=== PATIENT | female | born 1970 | race African-American/Black ===

== ENCOUNTER 2016-08-23 02:18 | Emergency (ER) | payer MEDICAID ==
[~2016-08-23] VITALS: Ht 177.8 cm; Wt 70.0 kg
[~2016-08-23 02:18] MED LIST: ADVAI100I PO; ALBU1AER INH
[2016-08-23 02:21] VITALS: BP 123/81; PULSE 94; RESP 16; TEMP 98; O2SAT 99
[2016-08-23] MEDS ORDERED: ALBUAER3 INH (02:39)
[2016-08-23] MEDS ORDERED: ADVA100A INH (02:39)
== END 2016-08-23 03:15 | disposition left against medical advice (07) ==
LOC: NED 02:18
DX: R07.9 Chest pain, unspecified (principal)
CPT/HCPCS: 99281

== ENCOUNTER 2016-10-08 00:35 | Emergency (ER) | payer MEDICAID ==
[~2016-10-08] VITALS: Ht 177.8 cm; Wt 73.0 kg
[~2016-10-08 00:35] MED LIST changes: +ADVA100A INH; -ADVAI100I PO; -ALBU1AER INH; +ALBUAER3 INH
[2016-10-08 00:37] VITALS: BP 133/93; PULSE 91; RESP 15; TEMP 98.3; O2SAT 100
[2016-10-08] MEDS ORDERED: NEUR300C PO (01:05)
--- NOTE | 2016-10-08 01:05 | PD ---
HPI Chief Complaint: Pain: Acute or Chronic Time Seen by Provider: 00:55 Travel History International Travel<30 days: No Contact w/Intl Traveler<30days: No Traveled to known affect area: No History of Present Illness HPI 46 old black female presents to emergency para complains of bilateral leg pain. The pain is been present now for 2 years or more. This is a patient who I'm seeing for the same problem back in December. She had basic labs including sedimentation rate and CK. She was given prescription prednisone and was advised to follow-up with her doctor. She's been through physical therapy. She states the pains have been constant but have been progressively getting worse. She takes Lortab for pain. She states that her doctor has not determine the etiology of her pain. Patient denies any trauma. She states the pain is diffuse in her legs. There is no focal localization. Pain is exacerbated by walking. She denies any numbness or tingling. She denies back pain. PFSH Past Medical History Hx Anticoagulant Therapy: No Heart Rhythm Problems: No Cancer: No Cardiac Catheterization: No Cardiovascular Problems: Yes (CHEST PAIN) High Cholesterol: Yes Chemotherapy: No Chest Pain: Yes (MAYBE HAD A MILD [place]?/ PT DENIES) COPD: Yes Cerebrovascular Accident: Yes (CVA 2013) Diabetes: No Diminished Hearing: No Endocrine: No Genitourinary: No Immune Disorder: No Musculoskeletal: Yes (hx dislocated left knee ) Neurologic: No Reproductive: No Respiratory: Yes (COPD) Menopausal: No : 3 Para: 3 Miscarriage: 0 : 0 Ovarian Cysts: Yes Tubal Ligation: Yes Past Surgical History Coronary Artery Bypass Graft: No Gynecologic Surgery: Yes (TUBAL LIGATION) Hysterectomy: No Social History Alcohol Use: Yes ( OCCASIONAL) Tobacco Use: Yes (1/2 PPD) Substance Use: No (DENIES) Allergies-Medications (Allergen,Severity, Reaction): Coded Allergies: Morphine (Verified Allergy, Severe, ITCH, 10/08/16) Tylenol #3 (Verified Allergy, Severe, ITCH, 10/08/16) Codeine (Verified Allergy, Intermediate, Rash, 10/08/16) Reported Meds & Prescriptions Reported Meds & Active Scripts Active Reported Proair Hfa 8.5 GM Inh (Albuterol Sulfate) 90 Mcg/Act Aer 1 Puff INH Q4H PRN 108 mcg/actuation Advair Diskus Inh (Fluticasone-Salmeterol Inh) 100-50 Mcg/Blist Aer 1 Puff INH BID Rinse mouth after use. Review of Systems Except as stated in HPI: all other systems reviewed are Neg Physical Exam Narrative GENERAL: This is a well-nourished, well-developed patient, in no apparent distress. SKIN: No rashes, ecchymoses or lesions. Warm and dry. HEAD: Atraumatic. Normocephalic. EYES: PERRL, EOMI, no discharge or injection. No scleral icterus. EARS: Clear NOSE: Nasal turbinates appear normal. THROAT: Mucosa pink and moist. Airway patent. NECK: Trachea midline. supple, moves head freely. LUNGS: Clear to auscultation. CV: Regular in rhythm. ABDOMEN: Soft nontender. EXT: No clubbing cyanosis or edema. Patient has intact gross sensation. She has good dorsalis pedis pulses. She has full range of motion without instability. There is no erythema, warmth or edema. I'm able to flex and extend her legs freely without any pain. I palpated her thighs, calves and there is no discernible pain, swelling or erythema. There is no warmth. No Homans sign. Patient is ambulatory with antalgic gait. There is no reproducible back pain. She sits up in bed past 90. No saddle anesthesia. Data Data Last Documented VS Vital Signs Date Time Temp Pulse Resp B/P Pulse Ox O2 Delivery O2 Flow Rate FiO2 10/08/16 00:37 98.3 91 15 133/93 100 Room Air MDM Medical Decision Making Medical Screen Exam Complete: Yes Emergency Medical Condition: Yes Medical Record Reviewed: Yes Differential Diagnosis Differential diagnosis: Lumbar radiculopathy, myositis, autoimmune, PVD, neuropathy, malingering Narrative Course Patient will be given a prescription for Neurontin. This is chronic bilateral leg pain Diagnosis Primary Impression: Chronic pain of lower extremity, bilateral Patient Instructions: General Instructions Additional Instructions: Rest. Neurontin. Follow-up with your on Monday. Med/Other Pt SpecificInfo: Prescription(s) given Disposition: DISCHARGE HOME Condition: Stable Dariusz Ayoub Oct 08, 2016 01:04
[2016-10-08] MEDS ORDERED: GABAPENTIN 300 MG CAP PO ONE (01:15)
== END 2016-10-08 01:31 | disposition home or self-care (01) ==
LOC: NETRI 00:35
DX: M79.604 Pain in right leg (principal); M79.605 Pain in left leg; J44.9 Chronic obstructive pulmonary disease, unspecified; E78.00 Pure hypercholesterolemia, unspecified; Z86.73 Personal history of transient ischemic attack (TIA), and cerebral infarction without residual deficits; F17.210 Nicotine dependence, cigarettes, uncomplicated
CPT/HCPCS: 99283

== ENCOUNTER 2017-03-07 11:19 | Emergency (ER) | payer SELFPAY ==
[~2017-03-07] VITALS: Ht 177.8 cm; Wt 73.0 kg
[~2017-03-07 11:19] MED LIST changes: +NEUR300C PO
[2017-03-07 11:20] VITALS: BP 124/78; PULSE 82; RESP 16; TEMP 98.4; O2SAT 100
--- NOTE | 2017-03-07 11:28 | PD ---
Physical Exam Time Seen by Provider: 11:26 Narrative 46yo F c/o SOB x a few days. Deneis chest pain. +left upper back pain. + cough. Patient seen in triage. VS reviewed. Patient awaiting bed placement. Data Data Last Documented VS Vital Signs Date Time Temp Pulse Resp B/P (MAP) Pulse Ox O2 Delivery O2 Flow Rate FiO2 03/07/17 11:20 98.4 82 16 124/78 (93) 100 MDM Supervised Visit with STEPHANIE: Hemalatha Camarillo Mar 07, 2017 11:28
--- NOTE | 2017-03-07 11:52 | PD ---
HPI . shortness or breath and bad lung for over 1 year Chief Complaint: Respiratory Symptoms Time Seen by Provider: 11:50 Travel History International Travel<30 days: No Contact w/Intl Traveler<30days: No Traveled to known affect area: No History of Present Illness HPI 46 yr old female here with c/o of lung problems that she has had for over 1 year. She tells me she has gone to her PCP and a consumer insights specialist and they have told her that her lungs are going bad, likely related to her smoking. She admits to pain. Denies any fever, chills, etc. PFSH Past Medical History Hx Anticoagulant Therapy: No Heart Rhythm Problems: No Cancer: No Cardiac Catheterization: No Cardiovascular Problems: Yes (CHEST PAIN) High Cholesterol: Yes Chemotherapy: No Chest Pain: Yes (MAYBE HAD A MILD [place]?/ PT DENIES) COPD: Yes Cerebrovascular Accident: Yes (2011) Diabetes: No Diminished Hearing: No Endocrine: No Genitourinary: No Immune Disorder: No Musculoskeletal: Yes (hx dislocated left knee ) Neurologic: No Reproductive: No Respiratory: Yes (COPD) Menopausal: No : 3 Para: 3 Miscarriage: 0 : 0 Ovarian Cysts: Yes Tubal Ligation: Yes Past Surgical History Coronary Artery Bypass Graft: No Gynecologic Surgery: Yes (TUBAL LIGATION) Hysterectomy: No Social History Alcohol Use: Yes ( OCCASIONAL) Tobacco Use: Yes (1/2 PPD) Substance Use: No (DENIES) Allergies-Medications (Allergen,Severity, Reaction): Coded Allergies: acetaminophen (Unverified Allergy, Severe, ITCH, 02/21/17) codeine (Unverified Allergy, Severe, ITCH, 02/21/17) morphine (Unverified Allergy, Severe, ITCH, 02/21/17) Reported Meds & Prescriptions Reported Meds & Active Scripts Active Neurontin (Gabapentin) 300 Mg Cap 300 Mg PO TID Reported Proair Hfa 8.5 GM Inh (Albuterol Sulfate) 90 Mcg/Act Aer 1 Puff INH Q4H PRN 108 mcg/actuation Advair Diskus Inh (Fluticasone-Salmeterol Inh) 100-50 Mcg/Blist Aer 1 Puff INH BID Rinse mouth after use. Review of Systems General / Constitutional: No: Fever Eyes: No: Visual changes HENT: No: Headaches Cardiovascular: No: Chest Pain or Discomfort Respiratory: No: Cough, Shortness of Breath, Wheezing, Sneezing, Orthopnea, Hemoptysis, Night Sweats, Pleuritic Pain Gastrointestinal: No: Abdominal Pain Genitourinary: No: Dysuria Musculoskeletal: No: Pain Skin: No Rash Neurologic: No: Weakness Psychiatric: No: Depression Endocrine: No: Polydipsia Hematologic/Lymphatic: No: Easy Bruising Physical Exam Narrative GENERAL: AAO x 3, no acute distress, Well-nourished, well-developed patient. SKIN: Warm and dry. No visible rashes or bruising. HEAD: Normocephalic and atraumatic. EYES: No scleral icterus. No injection or drainage. ENT: No nasal drainage noted. Mucous membranes pink. Airway patent. NECK: Supple, trachea midline. No JVD. CARDIOVASCULAR: Regular rate and rhythm without murmurs, gallops, or rubs. RESPIRATORY: Breath sounds equal bilaterally. No accessory muscle use. No rhonchi or rales. No wheezing GASTROINTESTINAL: Visual inspection normal EXTREMITIES: No cyanosis or edema. BACK: Nontender without obvious deformity. No CVA tenderness. NEURO: CN II-12 intact PSYCH: AAO x 3, normal affect. Data Data Last Documented VS Vital Signs Date Time Temp Pulse Resp B/P (MAP) Pulse Ox O2 Delivery O2 Flow Rate FiO2 03/07/17 11:20 98.4 82 16 124/78 (93) 100 Orders Orders Chest, Pa & Lat (03/07/17 11:30) [facility] Medical Decision Making Medical Screen Exam Complete: Yes Emergency Medical Condition: No Medical Record Reviewed: Yes Differential Diagnosis COPD, less likely pulmonary emboli, less likely pneumonia Narrative Course A medical screening exam was performed: At the time of evaluation the presenting medical condition was determined not to be of an emergent nature. The patient was given the option of receiving additional care, but declined. Patient was given options for additional community resources from which to obtain care. The Patient Has Been advised to seek medical attention for their presenting complaint. The patient has been advised to return to the ER at any time if an emergent condition develops. Per Well's Criteria low likelihood of PE. Exam unremarkable. Xray ordered in triage. We briefly discussed possibilities and she tells me that the doctors all say that those things are not wrong with her. She got up and walked out of the exam room stating, "You're not a doctor and won 't be able to do anything anyway." Diagnosis Primary Impression: Encounter for medical screening examination Condition: Stable Olga Naik Mar 07, 2017 11:52
--- NOTE | 2017-03-07 12:43 | RADRPT ---
EXAM DATE/TIME: 03/07/2017 11:49 [facility] COMPARISON: CHEST SINGLE AP, January 17, 2016, 0:42. INDICATIONS : Short of breath and left side chest for a year. MEDICAL HISTORY : Chronic obstructive pulmonary disease. SURGICAL HISTORY : None. ENCOUNTER: Initial ACUITY: >1 year PAIN SCORE: 3/10 LOCATION: Bilateral chest FINDINGS: PA and lateral views of the chest demonstrate the lungs to be symmetrically aerated without evidence of mass, infiltrate or effusion. The cardiomediastinal contours are unremarkable. Osseous structure s are intact. Stable symmetrical minimal bilateral apical pleural-parenchymal scarring CONCLUSION: No acute disease. No significant change has occurred. Josh Bingham MD on March 07, 2017 at 12:41 Board Certified Radiologist. This report was verified electronically.
== END 2017-03-07 12:07 | disposition left against medical advice (07) ==
LOC: NEPK 11:19
DX: R06.02 Shortness of breath (principal); M54.9 Dorsalgia, unspecified; R05 Cough; J44.9 Chronic obstructive pulmonary disease, unspecified; Z86.73 Personal history of transient ischemic attack (TIA), and cerebral infarction without residual deficits; F17.200 Nicotine dependence, unspecified, uncomplicated; Z79.52 Long term (current) use of systemic steroids; Z79.899 Other long term (current) drug therapy; Z88.5 Allergy status to narcotic agent
CPT/HCPCS: 71020; 99283

== ENCOUNTER 2017-03-17 23:37 | Emergency (ER) | payer SELFPAY ==
[~2017-03-17] VITALS: Ht 177.8 cm; Wt 70.0 kg
[2017-03-17 23:39] VITALS: BP 149/92; PULSE 97; RESP 15; TEMP 98; O2SAT 100
[2017-03-18] MEDS ORDERED: DEXAMETHASONE SOD PHOS 20 MG/5 ML VIAL IM ONE
--- NOTE | 2017-03-18 | PD ---
HPI Chief Complaint: Pain: Acute or Chronic Time Seen by Provider: 23:50 Travel History International Travel<30 days: No Contact w/Intl Traveler<30days: No Traveled to known affect area: No History of Present Illness HPI 46-year-old female with history of chronic leg pain, presents to emergency department for evaluation of exacerbation of this pain. Pain has existed for at least the last 2 years. She's been seen in emergency department multiple times in the past for this. She states that she has seen her primary care provider and got pain management but nobody knows why it happens. She states that she wants answers. She recalls an injury. No recent illness, fever, or chills. She does not want any pain medicine. She stopped taking her Neurontin because it wasn't working. Pain is a constant, burning, aching pain. She has no other symptoms to report. PFSH Past Medical History Hx Anticoagulant Therapy: No Heart Rhythm Problems: No Cancer: No Cardiac Catheterization: No Cardiovascular Problems: Yes (CHEST PAIN) High Cholesterol: Yes Chemotherapy: No Chest Pain: Yes (MAYBE HAD A MILD [place]?/ PT DENIES) COPD: Yes Cerebrovascular Accident: Yes (2011) Diabetes: No Diminished Hearing: No Endocrine: No Genitourinary: No Immune Disorder: No Musculoskeletal: Yes (hx dislocated left knee ) Neurologic: No Reproductive: No Respiratory: Yes (COPD) ?: Not Menopausal: No : 3 Para: 3 Miscarriage: 0 : 0 Ovarian Cysts: Yes Tubal Ligation: Yes Past Surgical History Coronary Artery Bypass Graft: No Gynecologic Surgery: Yes (TUBAL LIGATION) Hysterectomy: No Social History Alcohol Use: Yes ( OCCASIONAL) Tobacco Use: Yes (1 PPD) Substance Use: No (DENIES) Allergies-Medications (Allergen,Severity, Reaction): Coded Allergies: acetaminophen (Unverified Allergy, Severe, ITCH, 03/17/17) codeine (Unverified Allergy, Severe, ITCH, 03/17/17) morphine (Unverified Allergy, Severe, ITCH, 03/17/17) Reported Meds & Prescriptions Reported Meds & Active Scripts Active Reported Proair Hfa 8.5 GM Inh (Albuterol Sulfate) 90 Mcg/Act Aer 1 Puff INH Q4H PRN 108 mcg/actuation Advair Diskus Inh (Fluticasone-Salmeterol Inh) 100-50 Mcg/Blist Aer 1 Puff INH BID Rinse mouth after use. Review of Systems Except as stated in HPI: all other systems reviewed are Neg Physical Exam Narrative GENERAL: Well-nourished female patient, in no acute distress SKIN: Focused skin assessment warm/dry. HEAD: Atraumatic. Normocephalic. EYES: Pupils equal and round. No scleral icterus. No injection or drainage. ENT: No nasal bleeding or discharge. Mucous membranes pink and moist. NECK: Trachea midline. No JVD. CARDIOVASCULAR: Regular rate and rhythm. No murmur appreciated. RESPIRATORY: No accessory muscle use. Clear to auscultation. Breath sounds equal bilaterally. GASTROINTESTINAL: Abdomen soft, non-tender, nondistended. Hepatic and splenic margins not palpable. MUSCULOSKELETAL: No obvious deformities. No clubbing. No cyanosis. No edema. Patient has full range of motion the bilateral lower extremity. Sensation intact distal extremities. No edema, no erythema on the bilateral lower extremities. Negative Homans sign. I am able to palpate the entire legs without exacerbation of the patient's pain. NEUROLOGICAL: Awake and alert. No obvious cranial nerve deficits. Motor grossly within normal limits. Normal speech. PSYCHIATRIC: Appropriate mood and affect; insight and judgment normal. Data Data Last Documented VS Vital Signs Date Time Temp Pulse Resp B/P (MAP) Pulse Ox O2 Delivery O2 Flow Rate FiO2 03/18/17 00:18 03/17/17 23:48 16 03/17/17 23:39 98.0 97 100 Room Air Orders Orders Dexamethasone Inj (Decadron Inj) (03/18/17 00:00) [facility] Medical Decision Making Medical Screen Exam Complete: Yes Emergency Medical Condition: Yes Medical Record Reviewed: Yes Differential Diagnosis Neuropathy versus acute on chronic pain versus radiculopathy versus arthritic pain versus vascular etiology Narrative Course 46 year female resents versus permanent for evaluation of bilateral leg pain. Patient has been seen in the emergency department for this in the past. She has had it for over the last 2 years. Patient has known new injury. There are no acute findings on examination. Patient is reluctant for any medication but her is requesting steroid shot. Patient does want to attempt this for any relief. She is given IM Decadron. Patient will be discharged home to follow-up with her primary care provider. Diagnosis Primary Impression: Chronic pain of lower extremity, bilateral Referrals: Primary Care Physician Patient Instructions: General Instructions, Leg Pain (ED) Additional Instructions: Follow-up primary care provider Seek pain management evaluation Outpatient EMG may be warranted for further evaluation of your pain etiology Return immediately to the emergency department with any acute worsening of symptoms Med/Other Pt SpecificInfo: No Change to Meds Disposition: 01 DISCHARGE HOME Condition: Stable [place] Mar 18, 2017 00:00
== END 2017-03-18 00:22 | disposition home or self-care (01) ==
LOC: NEPD 23:37
DX: M79.605 Pain in left leg (principal); M79.604 Pain in right leg; G89.29 Other chronic pain
CPT/HCPCS: 96372; 99284; J1100

== ENCOUNTER 2017-07-18 09:44 | Observation (INO) | payer SELFPAY ==
[~2017-07-18] VITALS: Ht 177.8 cm; Wt 72.0 kg
[2017-07-18] VITALS (7 sets, daily range): BP systolic 103–115; BP diastolic 61–73; PULSE 74–90; RESP 14–18; TEMP 98–98.4; O2SAT 100
[~2017-07-18 09:44] MED LIST changes: -NEUR300C PO
--- NOTE | 2017-07-18 11:20 | RADRPT ---
EXAM DATE/TIME: 07/18/2017 10:52 [facility] COMPARISON: CHEST PA & LAT, March 07, 2017, 11:49. INDICATIONS : Chest pains mid-sternal radiating into left shoulder. MEDICAL HISTORY : None. SURGICAL HISTORY : None. ENCOUNTER: Initial ACUITY: 3 days PAIN SCORE: 7/10 LOCATION: Left chest FINDINGS: PA and lateral views of the chest demonstrate the lungs to be symmetrically aerated without evidence of mass, infiltrate or effusion. The cardiomediastinal contours are unremarkable. Osseous structure s are intact. CONCLUSION: No acute disease. Pal Davis MD on July 18, 2017 at 11:16 Board Certified Radiologist. This report was verified electronically.
[2017-07-18] MEDS ORDERED: SODIUM CHLORIDE 0.9% FLUSH 10 ML FLUSH IVF PRN (12:30)
[2017-07-18] MEDS ORDERED: NITROGLYCERIN 0.4 MG SL 25 TABS/BTL SL ONE (12:30)
[2017-07-18] MEDS ORDERED: ASPIRIN 325 MG TAB PO ONE (12:30)
--- NOTE | 2017-07-18 12:34 | PD ---
HPI Chief Complaint: Chest Pain Time Seen by Provider: 12:19 Travel History International Travel<30 days: No Contact w/Intl Traveler<30days: No Traveled to known affect area: No History of Present Illness HPI 47-year-old female states she's been having left-sided chest pain over the past week. She states it has gotten more constant. She states it feels like a pressure and will make her arm feels funny on the left. She states she also feels hot with it. She states that she has not taken an aspirin yet today. She states she followed with a events intern in [facility] but after insurance changes she is working on setting up a new one. She states her last stress test was last year but she didn't get the results yet. She denies other specific complaints. Quality is pressure. Severity is currently 7 out of 10. She denies specific modifying factors. Her cardiac risk factors are cigarette smoking and family history PFSH Past Medical History Hx Anticoagulant Therapy: No Heart Rhythm Problems: No Cancer: No Cardiac Catheterization: No High Cholesterol: Yes Chemotherapy: No Chest Pain: Yes (MAYBE HAD A MILD [place]?/ PT DENIES) COPD: Yes Cerebrovascular Accident: Yes (2011) Diabetes: No Diminished Hearing: No Endocrine: No Genitourinary: No Immune Disorder: No Musculoskeletal: Yes (hx dislocated left knee ) Neurologic: No Reproductive: No Respiratory: Yes (COPD) ?: Not Menopausal: No : 3 Para: 3 Miscarriage: 0 : 0 Ovarian Cysts: Yes Tubal Ligation: Yes Past Surgical History Coronary Artery Bypass Graft: No Gynecologic Surgery: Yes (TUBAL LIGATION) Hysterectomy: No Family History Family Myocardial Infarction: Yes Social History Alcohol Use: Yes ( OCCASIONAL) Tobacco Use: Yes (1 PPD) Substance Use: No (DENIES) Allergies-Medications (Allergen,Severity, Reaction): Coded Allergies: acetaminophen (Unverified Allergy, Severe, ITCH, 07/18/17) codeine (Unverified Allergy, Severe, ITCH, 07/18/17) morphine (Unverified Allergy, Severe, ITCH, 07/18/17) Reported Meds & Prescriptions Reported Meds & Active Scripts Active Reported Proair Hfa 8.5 GM Inh (Albuterol Sulfate) 90 Mcg/Act Aer 1 Puff INH Q4H PRN 108 mcg/actuation Advair Diskus Inh (Fluticasone-Salmeterol Inh) 100-50 Mcg/Blist Aer 1 Puff INH BID Rinse mouth after use. Review of Systems Except as stated in HPI: all other systems reviewed are Neg Physical Exam Narrative GENERAL: Well-nourished, well-developed patient. SKIN: Warm and dry. HEAD: Normocephalic and atraumatic. EYES: No injection or drainage. ENT: No nasal drainage noted. NECK: Supple, trachea midline. CARDIOVASCULAR: Regular rate and rhythm RESPIRATORY: Breath sounds equal bilaterally. No accessory muscle use. GASTROINTESTINAL: Abdomen soft, non-tender, nondistended. EXTREMITIES: No edema. NEUROLOGICAL: Awake and alert. Motor and sensory grossly within normal limits. Normal speech. Data Data Last Documented VS Vital Signs Date Time Temp Pulse Resp B/P (MAP) Pulse Ox O2 Delivery O2 Flow Rate FiO2 07/18/17 17:56 77 17 108/70 (83) 100 Room Air 07/18/17 09:45 98.4 Orders Orders Electrocardiogram (07/18/17 09:56) Complete Blood Count With Diff (07/18/17 09:56) Basic Metabolic Panel (Bmp) (07/18/17 09:56) Ckmb (Isoenzyme) Profile (07/18/17 09:56) Troponin I (07/18/17 09:56) Chest, Pa & Lat (07/18/17 09:56) D-Dimer (07/18/17 12:21) Magnesium (Mg) (07/18/17 12:21) Prothrombin Time / Inr (Pt) (07/18/17 12:21) Act Partial Throm Time (Ptt) (07/18/17 12:21) Ecg Monitoring (07/18/17 12:21) Iv Access Insert/Monitor (07/18/17 12:21) Oximetry (07/18/17 12:21) Sodium Chloride 0.9% Flush (Ns Flush) (07/18/17 12:30) Hepatic Functional Panel (07/18/17 12:21) Aspirin (Aspirin) (07/18/17 12:30) Nitroglycerin Sl (Nitrostat Sl) (07/18/17 12:30) Drug Screen, Random Urine (07/18/17 12:27) Ketorolac Inj (Toradol Inj) (07/18/17 18:15) Ventilation & Perfusion Scan (07/18/17 ) Electrocardiogram (07/18/17 18:17) Ckmb (Isoenzyme) Profile (07/18/17 18:17) Troponin I (07/18/17 18:17) Admit Order (Ed Use Only) (07/18/17 18:26) ^ Watch For Or Notify (07/18/17 18:27) Labs Laboratory Tests Test 07/18/17 12:45 07/18/17 15:45 White Blood Count 7.0 TH/MM3 Red Blood Count 5.43 MIL/MM3 Hemoglobin 10.8 GM/DL Hematocrit 34.2 % Mean Corpuscular Volume 63.1 FL Mean Corpuscular Hemoglobin 19.9 PG Mean Corpuscular Hemoglobin Concent 31.5 % Red Cell Distribution Width 19.9 % Platelet Count 307 TH/MM3 Mean Platelet Volume 9.4 FL Neutrophils (%) (Auto) 55.7 % Lymphocytes (%) (Auto) 35.9 % Monocytes (%) (Auto) 5.5 % Eosinophils (%) (Auto) 2.2 % Basophils (%) (Auto) 0.7 % Neutrophils # (Auto) 3.9 TH/MM3 Lymphocytes # (Auto) 2.5 TH/MM3 Monocytes # (Auto) 0.4 TH/MM3 Eosinophils # (Auto) 0.2 TH/MM3 Basophils # (Auto) 0.1 TH/MM3 CBC Comment DIFF FINAL Differential Comment Blood Urea Nitrogen 5 MG/DL Creatinine 0.80 MG/DL Random Glucose 84 MG/DL Calcium Level 9.1 MG/DL Sodium Level 139 MEQ/L Potassium Level 4.3 MEQ/L Chloride Level 108 MEQ/L Carbon Dioxide Level 24.1 MEQ/L Anion Gap 7 MEQ/L Estimat Glomerular Filtration Rate 93 ML/MIN Magnesium Level 2.4 MG/DL Total Bilirubin 0.3 MG/DL Direct Bilirubin 0.1 MG/DL Indirect Bilirubin 0.2 MG/DL Aspartate Amino Transf (AST/SGOT) 13 U/L Alanine Aminotransferase (ALT/SGPT) 17 U/L Alkaline Phosphatase 111 U/L Total Creatine Kinase 99 U/L Troponin I LESS THAN 0.02 NG/ML Total Protein 8.4 GM/DL Albumin 4.2 GM/DL Prothrombin Time 10.2 SEC Prothromb Time International Ratio 1.0 RATIO Activated Partial Thromboplast Time 25.7 SEC D-Dimer Quantitative (PE/DVT) 0.76 MG/L FEU [facility] Medical Decision Making Medical Screen Exam Complete: Yes Emergency Medical Condition: Yes Medical Record Reviewed: Yes (past history confirmed) Interpretation(s) EKG is sinus rhythm at 88, mild ST depression inferior and laterally without ST elevation CBC & BMP Diagram 07/18/17 12:45 Calcium Level 9.1 cxr no acute Differential Diagnosis AK, PE, gastritis, strain Narrative Course Will check blood work, chest x-ray and EKG and dose with aspirin and nitroglycerin patient with multiple recollects, patient's d-dimer resulted positive. Patient poor IV access and unable to get IV for CT so we'll proceed with V/Q and repeat cardiac markers in the hospital, patient agrees to plan Physician Communication Physician Communication dr troy agrees to admit Diagnosis Primary Impression: Chest pain Qualified Codes: R07.9 - Chest pain, unspecified Admitting Information Admitting Physician Requests: Observation Marina Sahu MD Jul 18, 2017 12:34
[2017-07-18 13:32] LABS: AUTOMATED NEUTROPHIL # 3.9 TH/MM3 (1.8-7.7); BASOPHIL # 0.1 TH/MM3 (0-0.2); BASOPHIL % 0.7 % (0.0-2.0); EOSINOPHIL # 0.2 TH/MM3 (0-0.4); EOSINOPHIL % 2.2 % (0.0-4.0); HEMATOCRIT 34.2 % (35.0-46.0); HEMOGLOBIN 10.8 GM/DL (11.6-15.3); LYMPH % 35.9 % (9.0-44.0); LYMPHOCYTE # 2.5 TH/MM3 (1.0-4.8); MEAN CELL VOLUME 63.1 FL (80.0-100.0); MEAN CORPUSCULAR HEMOGLOBIN 19.9 PG (27.0-34.0); MEAN CORPUSCULAR HGB CONC 31.5 % (32.0-36.0); MEAN PLATELET VOLUME 9.4 FL (7.0-11.0); MONO % 5.5 % (0.0-8.0); MONOCYTE # 0.4 TH/MM3 (0-0.9); NEUT % 55.7 % (16.0-70.0); PLATELET COUNT 307 TH/MM3 (150-450); RED BLOOD COUNT 5.43 MIL/MM3 (4.00-5.30); RED CELL DISTRIBUTION WIDTH 19.9 % (11.6-17.2)
[2017-07-18 13:43] LABS: ALBUMIN 4.2 GM/DL (3.4-5.0); BICARBONATE 24.1 MEQ/L (21.0-32.0); BLOOD UREA NITROGEN 5 MG/DL (7-18); CALCIUM 9.1 MG/DL (8.5-10.1); CHLORIDE 108 MEQ/L (98-107); DIRECT BILIRUBIN ADULT 0.1 MG/DL (0.0-0.2); GLOMERULAR FILTRATION RATE 93 ML/MIN (>89); GLUCOSE,RANDOM 84 MG/DL (74-106); MAGNESIUM 2.4 MG/DL (1.5-2.5); SODIUM (NA) 139 MEQ/L (136-145)
[2017-07-18 13:45] LABS: INDIRECT BILIRUBIN 0.2 MG/DL (0.0-0.8); TOTAL BILIRUBIN ADULT 0.3 MG/DL (0.2-1.0); TOTAL PROTEIN 8.4 GM/DL (6.4-8.2)
[2017-07-18 13:47] LABS: TROPONIN I LESS THAN 0.02 NG/ML (0.02-0.05)
--- NOTE | 2017-07-18 16:25 | EKG ---
Date Performed: 07/18/2017 Time Performed: 10:04:17 PTAGE: 47 years EKG: Sinus rhythm NORMAL ECG PREVIOUS TRACING 01/17/16 ST-T wave changes improved since prior tracing. DOCTOR: Erwin Jones Interpretating Date/Time 07/18/2017 16:24:01
[2017-07-18 17:04] LABS: D-DIMER 0.76 MG/L FEU (0.00-0.50); PROTHROMBIN TIME - PATIENT 10.2 SEC (9.8-11.6)
[2017-07-18] MEDS ORDERED: KETOROLAC TROMETHAMINE 30 MG/ML (IVP) VIAL IV PUSH ONE (18:15)
[2017-07-18] MEDS ORDERED: ACETAMINOPHEN 325 MG TAB PO PRN (18:30)
[2017-07-18] MEDS ORDERED: LACTULOSE SYRUP 20 GM/30 ML CUP PO PRN (18:30)
[2017-07-18] MEDS ORDERED: SODIUM CHLORIDE 0.9% FLUSH 10 ML FLUSH IV FLUSH PRN (18:30)
[2017-07-18] MEDS ORDERED: SENNOSIDES 8.6 MG TAB PO PRN (18:30)
[2017-07-18] MEDS ORDERED: MAGNESIUM HYDROXIDE SUSP 30 ML CUP PO PRN (18:30)
[2017-07-18] MEDS ORDERED: BISACODYL 10 MG SUPP RECTAL PRN (18:30)
[2017-07-18] MEDS ORDERED: NALOXONE HCL 0.4 MG/ML AMP IV PUSH PRN (18:30)
[2017-07-18] MEDS ORDERED: NITROGLYCERIN 0.4 MG SL 25 TABS/BTL SL PRN (20:30)
[2017-07-18 20:35] LABS: TROPONIN I LESS THAN 0.02 NG/ML (0.02-0.05)
[2017-07-18] MEDS ORDERED: RESP: ALBUTEROL 2.5 MG/IPRATROPIUM 0.5 MG NEB (PRN) NEB (20:45)
--- NOTE | 2017-07-18 21:32 | RADRPT ---
EXAM DATE/TIME: 07/18/2017 20:25 [facility] COMPARISON: CHEST PA & LAT, July 18, 2017, 10:52. INDICATIONS : Eleavted d-dimer with chest pain. DOSE: 1.4 mCi Tc99m DTPA 8.8 mCi Tc99m MAA MEDICAL HISTORY : Cerebrovascular disease. Chronic obstructive pulmonary disease. Hypercholesterolemia. Smoker. SURGICAL HISTORY : Tubal ligation. ENCOUNTER: Initial ACUITY: 1 day PAIN SCALE: 3/10 LOCATION: Left chest TECHNIQUE: Following five minutes of tidal breathing of DTPA aerosol, planar images of the lungs were performed in eight projections. The patient was then injected with MAA, and eight-view perfusion scan was perf ormed. FINDINGS: There is a homogeneous pattern of aerosol delivery to the periphery of both lungs. No focal ventilat ory defects are seen. The perfusion lung scan demonstrates a homogenous pattern of uptake in both lungs. No segmental or s ubsegmental defects are seen. CONCLUSION: Homogeneous perfusion. Study is low probability for pulmonary embolus. Pal Arreola MD on July 18, 2017 at 21:28 Board Certified Radiologist. This report was verified electronically.
[2017-07-18] MEDS: BUDESONIDE-FORMOTEROL 80/4.5 MCG INHALER INH SCH (22:00)
--- NOTE | 2017-07-18 23:12 | HHI.HP ---
HPI Service [facility] Primary Care Physician No Primary Care Physician Admission Diagnosis chest pain Diagnoses: (1) Atypical chest pain Chief Complaint: chest pain Travel History International Travel<30 Days: No Contact w/Intl Traveler <30 Da: No Traveled to Known Affected Are: No History of Present Illness Ms. Chandler is a 47 y/o female with a history of COPD, CVA, and reportedly an abnormal cardiac stress test and failed cardiac cath attempt two years ago presents to the ED with a one week history of chest pain. The patient is seen in the CDU. She is status post VQ scan which shows low probability for pulmonary embolism. She has been having symptoms similar to this for over the past 2 years and has seen a email manager, Dr. Jackson, and prize coordinator, Dr. Jo, for symptoms as an outpatient. She said there is a tests the prize coordinator wishes to run but she has been unable to get insurance authorization for it to be done. She is unable to tell me what the test is or what it involves. She states that her chest pain is located central and left side of chest, a 6/ 10 on pain scale, and it is constantly present but waxes and wanes. The pain is somewhat relieved when she gets up and moves around. There is no relationship with the pain to mealtimes. The pain is not worse with exertion. The pain is accompanied by diaphoresis, dizziness, palpitations, shortness of breath, and feeling flushed and warm. She describes it as a tightness when breathing in and also describes waking up in the morning with swollen hands and feet. EKG shows normal sinus rhythm with no ischemic changes - this was personally reviewed by me - and cardiac enzymes are negative thus far. She reports having a temperature of 100.0 last week one morning but denies any cold symptoms or cough. Elevated temperature has not recurred since then. Review of Systems Except as stated in HPI: all other systems reviewed are Neg Past Family Social History Past Medical History CVA 4 years ago - took a blood thinner for a couple of months but then stopped taking them and hasn't taken any since - reports minimal intermittent left sided weakness but requires no assistive devices Abnormal cardiac stress test with right radial catheterization attempt about 2 years ago - catheterization attempt to this approach was unsuccessful - the patient refused any additional attempts COPD Hyperlipidemia Tobacco abuse Denies diabetes mellitus, liver problems, kidney problems, coronary artery disease, atrial fibrillation, DVT, PE, seizures, thyroid problems or CA. Past Surgical History BTL left elbow repair . Reported Medications . Reported Meds & Active Scripts Active Reported Proair Hfa 8.5 GM Inh (Albuterol Sulfate) 90 Mcg/Act Aer 1 Puff INH Q4H PRN 108 mcg/actuation Advair Diskus Inh (Fluticasone-Salmeterol Inh) 100-50 Mcg/Blist Aer 1 Puff INH BID Rinse mouth after use. Allergies: Coded Allergies: acetaminophen (Unverified Allergy, Severe, ITCH, 07/18/17) codeine (Unverified Allergy, Severe, ITCH, 07/18/17) morphine (Unverified Allergy, Severe, ITCH, 07/18/17) Active Ordered Medications Current Medications Sodium Chloride (NS Flush) 2 ml UNSCH PRN IVF FLUSH AFTER USING IV ACCESS; Start 07/18/17 at 12:30; Stop 07/18/17 at 21:49; Status DC Aspirin (Aspirin) 325 mg ONCE ONCE PO Last administered on 07/18/17at 12:52; Start 07/18/17 at 12:30; Stop 07/18/17 at 12:31; Status DC Nitroglycerin (Nitrostat Sl) 0.4 mg ONCE ONCE SL Last administered on at 12:53; Start 07/18/17 at 12:30; Stop 07/18/17 at 12:31; Status DC Ketorolac Tromethamine (Toradol Inj) 30 mg ONCE ONCE IV PUSH ; Start 07/18/17 at 18:15; Stop 07/18/17 at 18:16; Status DC Sodium Chloride (NS Flush) 2 ml UNSCH PRN IV FLUSH FLUSH AFTER USING IV ACCESS ; Start 07/18/17 at 18:30 Sodium Chloride (NS Flush) 2 ml BID IV FLUSH Last administered on 07/18/17at 23: 46; Start 07/18/17 at 21:00 Acetaminophen (Tylenol) 650 mg Q4H PRN PO TEMP > 100.4; Start 07/18/17 at 18:30 Enoxaparin Sodium (Lovenox Inj) 40 mg Q24H SQ Last administered on 07/18/17at 23: 48; Start 07/18/17 at 20:00 Naloxone HCl (Narcan Inj) 0.4 mg UNSCH PRN IV PUSH SEE LABEL COMMENTS; Start at 18:30 Magnesium Hydroxide (Milk Of Magnesia Liq) 30 ml Q12H PRN PO Mild constipation ; Start 07/18/17 at 18:30 Sennosides (Senokot) 17.2 mg Q12H PRN PO Moderate constipation; Start 07/18/17 at 18:30 Bisacodyl (Dulcolax Supp) 10 mg DAILY PRN RECTAL SEVERE CONSITIPATION; Start at 18:30 Lactulose (Lactulose Liq) 30 ml DAILY PRN PO SEVERE CONSITIPATION; Start at 18:30 Nitroglycerin (Nitrostat Sl) 0.4 mg Q5M PRN SL CHEST PAIN; Start 07/18/17 at 20: 30 Albuterol/ Ipratropium (Duoneb Neb) 1 ampule Q4HR NEB PRN NEB sob/wheezing; Start 07/18/17 at 20:45 Budesonide/ Formoterol Fumarate (Symbicort 80-4.5 Mcg Inh) 2 puff BID INH ; Start 07/18/17 at 22:00 Acetaminophen/ Hydrocodone Bitart ([place] 5-325 Mg) 1 tab ONCE ONCE PO Last administered on 07/18/17at 23:45; Start 07/18/17 at 23:15; Stop 07/18/17 at 23:38; Status DC . Family History GA Social History Tobacco: Smokes 1 pack per day Alcohol: denies Illicit Drugs: denies . Physical Exam Vital Signs Vital Signs Date Time Temp Pulse Resp B/P (MAP) Pulse Ox O2 Delivery O2 Flow Rate FiO2 07/18/17 20:29 98.0 77 18 108/61 (77) 100 07/18/17 19:20 77 16 109/68 (82) 99 07/18/17 17:56 77 17 108/70 (83) 100 Room Air 07/18/17 13:45 17 07/18/17 13:45 74 17 103/62 (76) 100 Room Air 07/18/17 12:54 74 17 109/67 (81) 100 Room Air 07/18/17 09:45 98.4 90 14 115/73 (87) 100 Physical Exam GENERAL: This is a female patient, in no apparent distress. SKIN: No rashes, ecchymoses or lesions. Cool and dry. HEAD: Atraumatic. Normocephalic. EYES: No scleral icterus. No injection or drainage. ENT: Nose without bleeding, purulent drainage. NECK: Trachea midline. No JVD or lymphadenopathy. CARDIOVASCULAR: Regular rate and rhythm without murmurs, gallops, or rubs. RESPIRATORY: Clear to auscultation. Breath sounds diminished at bases but equal bilaterally. No wheezes, rales, or rhonchi. GASTROINTESTINAL: Abdomen soft, non-tender, nondistended. No guarding. MUSCULOSKELETAL: Extremities without clubbing, cyanosis, or edema. No calf tenderness. NEUROLOGICAL: Awake and alert. Motor and sensory grossly within normal limits. Normal speech. . Laboratory Laboratory Tests Test 07/18/17 12:45 07/18/17 15:45 07/18/17 19:35 White Blood Count 7.0 Red Blood Count 5.43 Hemoglobin 10.8 Hematocrit 34.2 Mean Corpuscular Volume 63.1 Mean Corpuscular Hemoglobin 19.9 Mean Corpuscular Hemoglobin Concent 31.5 Red Cell Distribution Width 19.9 Platelet Count 307 Mean Platelet Volume 9.4 Neutrophils (%) (Auto) 55.7 Lymphocytes (%) (Auto) 35.9 Monocytes (%) (Auto) 5.5 Eosinophils (%) (Auto) 2.2 Basophils (%) (Auto) 0.7 Neutrophils # (Auto) 3.9 Lymphocytes # (Auto) 2.5 Monocytes # (Auto) 0.4 Eosinophils # (Auto) 0.2 Basophils # (Auto) 0.1 CBC Comment DIFF FINAL Differential Comment Blood Urea Nitrogen 5 Creatinine 0.80 Random Glucose 84 Calcium Level 9.1 Sodium Level 139 Potassium Level 4.3 Chloride Level 108 Carbon Dioxide Level 24.1 Anion Gap 7 Estimat Glomerular Filtration Rate 93 Magnesium Level 2.4 Total Bilirubin 0.3 Direct Bilirubin 0.1 Indirect Bilirubin 0.2 Aspartate Amino Transf (AST/SGOT) 13 Alanine Aminotransferase (ALT/SGPT) 17 Alkaline Phosphatase 111 Total Creatine Kinase 99 79 Troponin I LESS THAN 0.02 LESS THAN 0.02 Total Protein 8.4 Albumin 4.2 Prothrombin Time 10.2 Prothromb Time International Ratio 1.0 Activated Partial Thromboplast Time 25.7 D-Dimer Quantitative (PE/DVT) 0.76 Result Diagram: 07/18/17 1245 07/18/17 1245 Imaging Last Impressions Chest X-Ray 07/18/17 0956 Signed Impressions: Service Date/Time: Tuesday, July 18, 2017 10:52 - CONCLUSION: No acute disease. aPl Davis MD Lung Scan-VQ Nuclear Medicine 07/18/17 0000 Signed Impressions: Service Date/Time: Tuesday, July 18, 2017 20:25 - CONCLUSION: Homogeneous perfusion. Study is low probability for pulmonary embolus. Pal Arreola MD . Caprini VTE Risk Assessment Caprini VTE Risk Assessment: Mod/High Risk (score >= 2) Caprini Risk Assessment Model Point Value = 1 Point Value = 2 Point Value = 3 Point Value = 5 Age 41-60 Minor surgery BMI > 25 kg/m2 Swollen legs Varicose veins or History of unexplained or recurrent spontaneous Oral contraceptives or hormone replacement Sepsis (< 1 month) Serious lung disease, including pneumonia (< 1 month) Abnormal pulmonary function Acute myocardial infarction Congestive heart failure (< 1 month) History of inflammatory bowel disease Medical patient at bed rest Age 61-74 Arthroscopic surgery Major open surgery (> 45 min) Laparoscopic surgery (> 45 min) Malignancy Confined to bed (> 72 hours) Immobilizing plaster cast Central venous access Age >= 75 History of VTE Family history of VTE Factor V Leiden Prothrombin [id number] Lupus anticoagulant Anticardiolipin antibodies Elevated serum homocysteine Heparin-induced thrombocytopenia Other congenital or acquired thrombophilia Stroke (< 1 month) Elective arthroplasty Hip, pelvis, or leg fracture Acute spinal cord injury (< 1 month) Prophylaxis Regimen Total Risk Factor Score Risk Level Prophylaxis Regimen 0-1 Low Early ambulation 2 Moderate Order ONE of the following: *Sequential Compression Device (SCD) *Heparin 5000 units SQ BID 3-4 Higher Order ONE of the following medications: *Heparin 5000 units SQ TID *Enoxaparin/Lovenox 40 mg SQ daily (WT < 150 kg, CrCl > 30 mL/min) *Enoxaparin/Lovenox 30 mg SQ daily (WT < 150 kg, CrCl > 10-29 mL/min) *Enoxaparin/Lovenox 30 mg SQ BID (WT < 150 kg, CrCl > 30 mL/min) AND/OR *Sequential Compression Device (SCD) 5 or more Highest Order ONE of the following medications: *Heparin 5000 units SQ TID (Preferred with Epidurals) *Enoxaparin/Lovenox 40 mg SQ daily (WT < 150 kg, CrCl > 30 mL/min) *Enoxaparin/Lovenox 30 mg SQ daily (WT < 150 kg, CrCl > 10-29 mL/min) *Enoxaparin/Lovenox 30 mg SQ BID (WT < 150 kg, CrCl > 30 mL/min) AND *Sequential Compression Device (SCD) Assessment and Plan Problem List: (1) Atypical chest pain ICD Code: R07.89 - Other chest pain (2) COPD (chronic obstructive pulmonary disease) ICD Code: J44.9 - Chronic obstructive pulmonary disease, unspecified (3) Shortness of breath ICD Code: R06.02 - Shortness of breath Assessment and Plan Ms. Chandler is a 47 y/o female with a history of COPD, CVA, and reportedly an abnormal cardiac stress test and failed cardiac cath attempt two years ago presents to the ED with a one week history of chest pain. Atypical chest pain - Serial 12 lead EKGs and cardiac enzymes to r/o ACS - Continuous cardiac telemetry to monitor for cardiac arrhythmias - Heart healthy diet - Nitroglycerin 0.4 mg sublingual when necessary chest pain . COPD exacerbation - Resume home Symbicort inhaler - Duo nebulizers every 4 hours as needed for shortness of breath or wheezing - consult Dr. Jo - appreciate assistance Shortness of breath - cardiology cardiac versus pulmonary - CT PA not performed d/t no IV access - VQ scan showed low probability of PE - Check echocardiogram for cardiac structure and function - Chest x-ray negative for acute disease DVT prophylaxis - Lovenox 40 mg subq q24h Discussed Condition With Dr. Hdz, patient, and patient's RN . Lilly Ruiz Jul 18, 2017 23:12
[2017-07-18] MEDS ORDERED: ACETAMINOPHEN/HYDROcodone 325 MG/5 MG TAB PO ONE (23:15)
[2017-07-18] MEDS: SODIUM CHLORIDE 0.9% FLUSH 10 ML FLUSH IV FLUSH SCH (23:46)
[2017-07-18] MEDS: ENOXAPARIN SODIUM 40 MG/0.4 ML SYRINGE SQ SCH (23:48)
[2017-07-19] VITALS (10 sets, daily range): BP systolic 104–114; BP diastolic 56–76; PULSE 66–105; RESP 18; TEMP 97.9–98.4; O2SAT 96–100
[2017-07-19] MEDS: BUDESONIDE-FORMOTEROL 80/4.5 MCG INHALER INH SCH ×2 (08:54→20:41)
[2017-07-19] MEDS: SODIUM CHLORIDE 0.9% FLUSH 10 ML FLUSH IV FLUSH SCH ×2 (08:56→20:41)
--- NOTE | 2017-07-19 09:30 | MB ---
cc: JANY CARMICHAEL M.D. DATE OF CONSULTATION 07/19/2017 REASON FOR CONSULTATION Chest pain HISTORY OF PRESENT ILLNESS Ms. Chandler is a 47-year-old female with a known history of COPD and previous CVA with a questionable history of coronary artery disease. The patient's chest pain has been present for a week. It is increased with movement and pressure on the lower rib cage and goes to the left side of the cage as well. She does smoke a pack of cigarettes a day. She denies a history of fever or chills. She has an occasional dry cough, no hemoptysis. No TB. No previous industrial exposure. Chest x-ray is clear. VQ lung scan without perfusion defects. PAST MEDICAL HISTORY 1. COPD 2. Previous cerebrovascular accident four years ago. Apparently was on anticoagulant therapy for a short period of time. 3. Denies a history of hypertension. 4. Has a history of hyperlipidemia. SOCIAL HISTORY Smokes a pack of cigarettes a day. Does not drink alcohol. No TB or industrial exposure. FAMILY HISTORY Noncontributory MEDICATIONS Medications at home include: 3. Advair twice daily 4. p.r.n. ProAir ALLERGIES TYLENOL, CODEINE AND MORPHINE. SYSTEMS REVIEW A 12-point review of systems as per HPI and past history otherwise negative. FAMILY HISTORY Positive for coronary artery disease otherwise unremarkable. PHYSICAL EXAM On exam, temperature 98 degrees Fahrenheit, pulse 70, respirations 18, oxygen saturation 96% on room air, blood pressure 110/70. HEENT: Exam unremarkable. Eyes without icterus. NECK: Without adenopathy, thyroid enlargement. Central trachea. CHEST: Clear to percussion and auscultation. CARDIAC: PMI distant. S1-S2 audible. 1/6 ejection systolic murmur left sternal border. ABDOMEN: Lax, audible bowel sounds. EXTREMITIES: No clubbing, cyanosis or edema. SKIN: Normal. No lymphadenopathy. LABORATORY DATA Chest x-ray, no acute abnormality. VQ lung scan, low probability PE. White count 7000, hemoglobin 10, hematocrit 34. Sodium 139, potassium 4.3, BUN 65, creatinine 0.8. IMPRESSION 1. Chest pain most likely musculoskeletal. 2. COPD 3. History of CVA. PLAN The patient has no evidence of chest x-ray abnormality by chest x-ray or VQ lung scan. The chest pain is reproducible by pressure on the left lower sternum and ribcage. In view of the history of questionable coronary artery disease, a cardiac evaluation will be appropriate to assess same. Meanwhile, we will continue the patient's bronchodilators, check her pulmonary function. I do thank you for asking me to partake in Mrs. Chandler's care. Jany Carmichael MD WWW/MARGARITA /8:27 AM /9:08 AM
[2017-07-19] MEDS: RESP: ALBUTEROL 2.5 MG/IPRATROPIUM 0.5 MG NEB (SCH) NEB ×3 (12:04→21:12)
--- NOTE | 2017-07-19 13:22 | HHI.PR ---
Subjective Remarks in no acute distress. has on and off chest pain. has mild sob. Objective Vitals Vital Signs Date Time Temp Pulse Resp B/P (MAP) Pulse Ox O2 Delivery O2 Flow Rate FiO2 07/19/17 12:37 98.4 66 18 107/67 (80) 98 07/19/17 12:04 100 21 07/19/17 07:45 98.3 70 18 109/71 (84) 96 07/19/17 03:57 79 07/19/17 03:52 97.9 74 18 104/63 (77) 99 07/19/17 00:03 98.3 69 18 114/56 (75) 100 07/18/17 21:38 80 07/18/17 20:29 98.0 77 18 108/61 (77) 100 07/18/17 19:20 77 16 109/68 (82) 99 07/18/17 17:56 77 17 108/70 (83) 100 Room Air 07/18/17 13:45 17 07/18/17 13:45 74 17 103/62 (76) 100 Room Air Result Diagram: 07/18/17 1245 07/18/17 1245 Imaging Last Impressions Chest X-Ray 07/18/17 0956 Signed Impressions: Service Date/Time: Tuesday, July 18, 2017 10:52 - CONCLUSION: No acute disease. Pal Davis MD Lung Scan- Nuclear Medicine 07/18/17 0000 Signed Impressions: Service Date/Time: Tuesday, July 18, 2017 20:25 - CONCLUSION: Homogeneous perfusion. Study is low probability for pulmonary embolus. Pal Arreola MD Objective Remarks GENERAL: This is a well-nourished, well-developed patient, in no apparent distress. CARDIOVASCULAR: Regular rate and regular rhythm without murmurs, gallops, or rubs. RESPIRATORY: Clear to auscultation. Breath sounds equal bilaterally. No wheezes , rales, or rhonchi. GASTROINTESTINAL: Abdomen soft, non-tender, nondistended. Normal, active bowel sounds MUSCULOSKELETAL: Extremities without clubbing, cyanosis, or edema. NEURO: Alert & Oriented x4 to person, place, time, situation. Moves all ext x4 Medications and IVs Inpatient Medications Acetaminophen (Tylenol) 650 mg Q4H PRN PO TEMP > 100.4; Start 07/18/17 at 18:30 Acetaminophen/ Hydrocodone Bitart ([place] 5-325 Mg) 1 tab ONCE ONCE PO Last administered on 07/18/17at 23:45; Start 07/18/17 at 23:15; Stop 07/18/17 at 23:38; Status DC Albuterol/ Ipratropium (Duoneb Neb) 1 ampule Q4HR NEB NEB Last administered on 07/19/17at 12:04; Start 07/19/17 at 12:00 Aspirin (Aspirin) 325 mg ONCE ONCE PO Last administered on 07/18/17at 12:52; Start 07/18/17 at 12:30; Stop 07/18/17 at 12:31; Status DC Bisacodyl (Dulcolax Supp) 10 mg DAILY PRN RECTAL SEVERE CONSITIPATION; Start at 18:30 Budesonide/ Formoterol Fumarate (Symbicort 80-4.5 Mcg Inh) 2 puff BID INH Last administered on 07/19/17at 08:54; Start 07/18/17 at 22:00 Enoxaparin Sodium (Lovenox Inj) 40 mg Q24H SQ Last administered on 07/18/17at 23: 48; Start 07/18/17 at 20:00 Ketorolac Tromethamine (Toradol Inj) 30 mg ONCE ONCE IV PUSH ; Start 07/18/17 at 18:15; Stop 07/18/17 at 18:16; Status DC Lactulose (Lactulose Liq) 30 ml DAILY PRN PO SEVERE CONSITIPATION; Start at 18:30 Magnesium Hydroxide (Milk Of Magnesia Liq) 30 ml Q12H PRN PO Mild constipation ; Start 07/18/17 at 18:30 Naloxone HCl (Narcan Inj) 0.4 mg UNSCH PRN IV PUSH SEE LABEL COMMENTS; Start at 18:30 Nitroglycerin (Nitrostat Sl) 0.4 mg Q5M PRN SL CHEST PAIN; Start 07/18/17 at 20: 30 Sennosides (Senokot) 17.2 mg Q12H PRN PO Moderate constipation; Start 07/18/17 at 18:30 Sodium Chloride (NS Flush) 2 ml BID IV FLUSH Last administered on 07/19/17at 08: 56; Start 07/18/17 at 21:00 A/P Problem List: (1) Atypical chest pain ICD Code: R07.89 - Other chest pain (2) COPD (chronic obstructive pulmonary disease) ICD Code: J44.9 - Chronic obstructive pulmonary disease, unspecified (3) Shortness of breath ICD Code: R06.02 - Shortness of breath Assessment and Plan chest pain - Serial 12 lead EKGs and cardiac enzymes to r/o ACS - Continuous cardiac telemetry to monitor for cardiac arrhythmias - Heart healthy diet - Nitroglycerin 0.4 mg sublingual when necessary chest pain -stress test tomorrow . COPD exacerbation - Resumed home Symbicort inhaler - Duo nebulizers every 4 hours as needed for shortness of breath or wheezing - pulmonary consult appreciated. Shortness of breath - cardiology cardiac versus pulmonary - CT PA not performed d/t no IV access - VQ scan showed low probability of PE - Check echocardiogram for cardiac structure and function - Chest x-ray negative for acute disease -stress test as noted above. DVT prophylaxis - Lovenox 40 mg subq q24h Discharge Planning dc home tomorrow if stable- pending stress test. Jenna Hernandez MD Jul 19, 2017 13:22
--- NOTE | 2017-07-19 17:14 | ECHRPT ---
Indication: Shortness of breath CONCLUSIONS The left ventricular systolic function is normal with an estimated ejection fraction in the range of 55-60%. Wall thickness is normal. Normal left ventricular size. There is mild tricuspid valve regurgitation. The estimated pulmonary arterial pressure is 35 mmHg. Mild mitral valve regurgitation. BP: 104 / 63 HR: 74 Rhythm: Sinus MEASUREMENTS (Male / Female) Normal Values Technical Quality:Fair 2D ECHO LV Diastolic Diameter PLAX 4.3 cm 4.2 - 5.9 / 3.9 - 5.3 cm LV Systolic Diameter PLAX 3.3 cm IVS Diastolic Thickness 0.8 cm 0.6 - 1.0 / 0.6 - 0.9 cm LVPW Diastolic Thickness 0.8 cm 0.6 - 1.0 / 0.6 - 0.9 cm LV Relative Wall Thickness 0.4 LVOT Diameter 1.9 cm M-MODE Aortic Root Diameter MM 2.4 cm LA Systolic Diameter MM 2.3 cm LA Ao Ratio MM 1.0 AV Cusp Separation MM 2.2 cm DOPPLER AV Peak Velocity 143.0 cm/s AV Peak Gradient 8.2 mmHg LVOT Peak Velocity 99.7 cm/s LVOT Peak Gradient 4.0 mmHg AV Area Cont Eq pk 2.0 cm MR Peak Velocity 436.5 cm/s MR Peak Gradient 76.2 mmHg Mitral E Point Velocity 106.0 cm/s Mitral A Point Velocity 53.8 cm/s Mitral E to A Ratio 2.0 LV E' Lateral Velocity 11.3 cm/s Mitral E to LV E' Lateral Ratio 9.4 LV E' Septal Velocity 8.9 cm/s Mitral E to LV E' Septal Ratio 12.0 TR Peak Velocity 248.0 cm/s TR Peak Gradient 24.6 mmHg Right Atrial Pressure 10.0 mmHg Pulmonary Artery Systolic Pressu 34.6 mmHg Right Ventricular Systolic Press 34.6 mmHg PV Peak Velocity 113.0 cm/s PV Peak Gradient 5.1 mmHg FINDINGS LEFT VENTRICLE The left ventricular systolic function is normal with an estimated ejection fraction in the range of 55-60%. Wall thickness is normal. Normal left ventricular size. RIGHT VENTRICLE Normal right ventricular size and systolic function. LEFT ATRIUM The left atrial size is normal. RIGHT ATRIUM The right atrial size is normal. ATRIAL SEPTUM Normal atrial septal thickness without atrial level shunting by limited color doppler interrogation. AORTA The aortic root and proximal ascending aorta are normal in size on limited imaging. MITRAL VALVE Mild mitral valve regurgitation. AORTIC VALVE Trileaflet aortic valve. No aortic valve stenosis or regurgitation. TRICUSPID VALVE There is mild tricuspid valve regurgitation. The estimated pulmonary arterial pressure is 34.6 mmHg. PULMONARY VALVE No pulmonary valve regurgitation or stenosis. VESSELS The inferior vena cava is normal in size. PERICARDIUM No pericardial effusion. Luke Carbone MD, FACC (Electronically Signed) Final Date:19 July 2017 17:13
[2017-07-19] MEDS: ENOXAPARIN SODIUM 40 MG/0.4 ML SYRINGE SQ SCH (20:41)
--- NOTE | 2017-07-19 21:28 | EKG ---
Date Performed: 07/19/2017 Time Performed: 00:09:14 PTAGE: 47 years EKG: Sinus rhythm MINIMAL ST DEPRESSION BORDERLINE ECG PREVIOUS TRACING : 07/18/2017 19.16 Compared to prior tracing no significant change DOCTOR: Luke Carbone Interpretating Date/Time 07/19/2017 21:28:09
--- NOTE | 2017-07-19 21:47 | EKG ---
Date Performed: 07/18/2017 Time Performed: 19:16:25 PTAGE: 47 years EKG: Sinus rhythm NONSPECIFIC T-WAVE ABNORMALITY BORDERLINE ECG PREVIOUS TRACING : 07/18/2017 10.04 Compared to prior tracing no significant change DOCTOR: Luke Carbone Interpretating Date/Time 07/19/2017 21:46:56
[2017-07-20] VITALS (14 sets, daily range): BP systolic 91–107; BP diastolic 51–66; PULSE 71–109; RESP 12–20; TEMP 96.4–98.6; O2SAT 99–100
[2017-07-20] MEDS: RESP: ALBUTEROL 2.5 MG/IPRATROPIUM 0.5 MG NEB (SCH) NEB ×6 (00:50→19:48)
[2017-07-20] MEDS: BUDESONIDE-FORMOTEROL 80/4.5 MCG INHALER INH SCH ×2 (09:03→22:13)
[2017-07-20] MEDS: SODIUM CHLORIDE 0.9% FLUSH 10 ML FLUSH IV FLUSH SCH ×2 (09:04→22:13)
[2017-07-20] MEDS ORDERED: guaiFENesin/DEXTROMETHORPHAN 200 MG/20 MG/10 ML CUP PO ONE (09:15)
[2017-07-20] MEDS ORDERED: RESP: ALBUTEROL 2.5 MG/IPRATROPIUM 0.5 MG NEB (PRN) NEB (09:15)
--- NOTE | 2017-07-20 09:19 | HHI.PR ---
Subjective Remarks in no acute distress. but having sob and persistent cough. she's not feeling as good as yesterday. no fever. Objective Vitals Vital Signs Date Time Temp Pulse Resp B/P (MAP) Pulse Ox O2 Delivery O2 Flow Rate FiO2 07/20/17 08:04 99 21 07/20/17 07:26 97.6 75 18 91/54 (66) 99 07/20/17 03:45 75 07/20/17 03:32 97.8 87 18 100/55 (70) 100 07/20/17 00:39 84 07/20/17 00:09 98.2 81 18 107/55 (72) 99 07/19/17 20:19 80 07/19/17 20:11 98.3 97 18 106/60 (75) 100 07/19/17 17:02 97.9 105 18 108/76 (87) 100 07/19/17 12:37 98.4 66 18 107/67 (80) 98 07/19/17 12:04 100 21 Result Diagram: 07/18/17 1245 07/18/17 1245 Imaging Last Impressions Chest X-Ray 07/18/17 0956 Signed Impressions: Service Date/Time: Tuesday, July 18, 2017 10:52 - CONCLUSION: No acute disease. Pal Davis MD Lung Scan- Nuclear Medicine 07/18/17 0000 Signed Impressions: Service Date/Time: Tuesday, July 18, 2017 20:25 - CONCLUSION: Homogeneous perfusion. Study is low probability for pulmonary embolus. Pal Arreola MD Objective Remarks GENERAL: This is a well-nourished, well-developed patient, in no apparent distress but uncomfortable with the cough. CARDIOVASCULAR: Regular rate and regular rhythm without murmurs, gallops, or rubs. RESPIRATORY: Clear to auscultation. Breath sounds equal bilaterally. No wheezes , rales, or rhonchi. GASTROINTESTINAL: Abdomen soft, non-tender, nondistended. Normal, active bowel sounds MUSCULOSKELETAL: Extremities without clubbing, cyanosis, or edema. NEURO: Alert & Oriented x4 to person, place, time, situation. Moves all ext x4 Medications and IVs Inpatient Medications Acetaminophen (Tylenol) 650 mg Q4H PRN PO TEMP > 100.4; Start 07/18/17 at 18:30 Acetaminophen/ Hydrocodone Bitart ([place] 5-325 Mg) 1 tab ONCE ONCE PO Last administered on 07/18/17at 23:45; Start 07/18/17 at 23:15; Stop 07/18/17 at 23:38; Status DC Albuterol/ Ipratropium (Duoneb Neb) 1 ampule Q4HR NEB NEB Last administered on 07/20/17at 08:03; Start 07/19/17 at 12:00 Aspirin (Aspirin) 325 mg ONCE ONCE PO Last administered on 07/18/17at 12:52; Start 07/18/17 at 12:30; Stop 07/18/17 at 12:31; Status DC Bisacodyl (Dulcolax Supp) 10 mg DAILY PRN RECTAL SEVERE CONSITIPATION; Start at 18:30 Budesonide/ Formoterol Fumarate (Symbicort 80-4.5 Mcg Inh) 2 puff BID INH Last administered on 07/20/17at 09:03; Start 07/18/17 at 22:00 Enoxaparin Sodium (Lovenox Inj) 40 mg Q24H SQ Last administered on 07/19/17at 20 :41; Start 07/18/17 at 20:00 Ketorolac Tromethamine (Toradol Inj) 30 mg ONCE ONCE IV PUSH ; Start 07/18/17 at 18:15; Stop 07/18/17 at 18:16; Status DC Lactulose (Lactulose Liq) 30 ml DAILY PRN PO SEVERE CONSITIPATION; Start at 18:30 Magnesium Hydroxide (Milk Of Magnesia Liq) 30 ml Q12H PRN PO Mild constipation ; Start 07/18/17 at 18:30 Naloxone HCl (Narcan Inj) 0.4 mg UNSCH PRN IV PUSH SEE LABEL COMMENTS; Start at 18:30 Nitroglycerin (Nitrostat Sl) 0.4 mg Q5M PRN SL CHEST PAIN; Start 07/18/17 at 20: 30 Sennosides (Senokot) 17.2 mg Q12H PRN PO Moderate constipation; Start 07/18/17 at 18:30 Sodium Chloride (NS Flush) 2 ml BID IV FLUSH Last administered on 07/20/17at 09: 04; Start 07/18/17 at 21:00 A/P Problem List: (1) Atypical chest pain ICD Code: R07.89 - Other chest pain (2) COPD (chronic obstructive pulmonary disease) ICD Code: J44.9 - Chronic obstructive pulmonary disease, unspecified (3) Shortness of breath ICD Code: R06.02 - Shortness of breath Assessment and Plan chest pain - serial troponin negative. - Continuous cardiac telemetry to monitor for cardiac arrhythmias - Heart healthy diet - Nitroglycerin 0.4 mg sublingual when necessary chest pain -will reschedule the stress test for tomorrow- due to sob and worsening cough. . COPD exacerbation - Resumed home Symbicort inhaler - Duo nebulizers every 4 hours as needed for shortness of breath or wheezing -will consider adding steroid if no improvement with the neb treatment. - pulmonary consult appreciated. Shortness of breath - cardiology cardiac versus pulmonary - CT PA not performed d/t no IV access - VQ scan showed low probability of PE -echo with EF 55%. - Chest x-ray negative for acute disease -stress test tomorrow as noted above. DVT prophylaxis - Lovenox 40 mg subq q24h Discharge Planning patient with worsening cough and sob. will reschedule the stress test for tomorrow. not ready for discharge today. Jenna Hernandez MD Jul 20, 2017 09:19
[2017-07-20] MEDS ORDERED: guaiFENesin/DEXTROMETHORPHAN 200 MG/20 MG/10 ML CUP PO PRN (13:00)
--- NOTE | 2017-07-20 17:13 | HHI.PR ---
Subjective Remarks ALERT NO SOB STILL C/O CHEST PAIN WORSE WITH MOVEMENT Objective Vital Signs Date Time Temp Pulse Resp B/P (MAP) Pulse Ox O2 Delivery O2 Flow Rate FiO2 07/20/17 16:58 98.4 78 20 94/61 (72) 100 07/20/17 12:38 96.4 79 12 99/51 (67) 99 07/20/17 11:30 71 07/20/17 08:04 99 21 07/20/17 07:26 97.6 75 18 91/54 (66) 99 07/20/17 03:45 75 07/20/17 03:32 97.8 87 18 100/55 (70) 100 07/20/17 00:39 84 07/20/17 00:09 98.2 81 18 107/55 (72) 99 07/19/17 20:19 80 07/19/17 20:11 98.3 97 18 106/60 (75) 100 Result Diagram: 07/18/17 1245 07/18/17 1245 Objective Remarks GENERAL: SKIN: Warm and dry. HEAD: Atraumatic. Normocephalic. EYES: Pupils equal and round. No scleral icterus. No injection or drainage. ENT: No nasal bleeding or discharge. Mucous membranes pink and moist. NECK: Trachea midline. No JVD. CARDIOVASCULAR: Regular rate and rhythm. RESPIRATORY: No accessory muscle use. Clear to auscultation. Breath sounds equal bilaterally. GASTROINTESTINAL: Abdomen soft, non-tender, nondistended. Hepatic and splenic margins not palpable. MUSCULOSKELETAL: Extremities without clubbing, cyanosis, or edema. No obvious deformities. NEUROLOGICAL: Awake and alert. No obvious cranial nerve deficits. Motor grossly within normal limits. Five out of 5 muscle strength in the arms and legs. Normal speech. PSYCHIATRIC: Appropriate mood and affect; insight and judgment normal. Assessment and Plan Assessment and Plan COPD CHEST PAIN PROBABLY MUSCULOSKELETAL S/P CVA PLAN BRONCHODILATOR THERAPY FARTHER EVALUATION OF CHEST PAIN Jany Carmichael MD Jul 20, 2017 17:13
[2017-07-20] MEDS ORDERED: ACETAMINOPHEN/HYDROcodone 325 MG/5 MG TAB PO ONE (21:45)
[2017-07-20] MEDS: ENOXAPARIN SODIUM 40 MG/0.4 ML SYRINGE SQ SCH (22:14)
[2017-07-21] VITALS (8 sets, daily range): BP systolic 87–113; BP diastolic 53–67; PULSE 70–100; RESP 16–20; TEMP 96.3–98.2; O2SAT 98–99
[2017-07-21] MEDS: RESP: ALBUTEROL 2.5 MG/IPRATROPIUM 0.5 MG NEB (SCH) NEB ×4 (00:26→11:43)
[2017-07-21] MEDS: BUDESONIDE-FORMOTEROL 80/4.5 MCG INHALER INH SCH (08:38)
[2017-07-21] MEDS: SODIUM CHLORIDE 0.9% FLUSH 10 ML FLUSH IV FLUSH SCH (08:39)
--- NOTE | 2017-07-21 09:11 | HHI.PR ---
Subjective Remarks in no acute distress. looks and feels much better today. sob has improved and denies chest pain today. awaiting stress test. Objective Vitals Vital Signs Date Time Temp Pulse Resp B/P (MAP) Pulse Ox O2 Delivery O2 Flow Rate FiO2 07/21/17 08:04 96.3 82 20 110/67 (81) 99 07/21/17 07:45 99 07/21/17 04:56 98.2 84 16 113/55 (74) 98 07/21/17 04:03 70 07/21/17 01:29 98.0 78 16 87/53 (64) 98 07/21/17 00:07 78 07/20/17 21:10 98.6 89 16 99/66 (77) 99 07/20/17 20:13 109 07/20/17 19:48 100 21 07/20/17 17:23 84 07/20/17 16:58 98.4 78 20 94/61 (72) 100 07/20/17 12:38 96.4 79 12 99/51 (67) 99 07/20/17 12:00 78 07/20/17 11:30 71 Result Diagram: 07/18/17 1245 07/18/17 1245 Imaging Last Impressions Chest X-Ray 07/18/17 0956 Signed Impressions: Service Date/Time: Tuesday, July 18, 2017 10:52 - CONCLUSION: No acute disease. Pal Davis MD Lung Scan-V Nuclear Medicine 07/18/17 0000 Signed Impressions: Service Date/Time: Tuesday, July 18, 2017 20:25 - CONCLUSION: Homogeneous perfusion. Study is low probability for pulmonary embolus. Pal Arreola MD Objective Remarks GENERAL: This is a well-nourished, well-developed patient, in no apparent distress but uncomfortable with the cough. CARDIOVASCULAR: Regular rate and regular rhythm without murmurs, gallops, or rubs. RESPIRATORY: Clear to auscultation. Breath sounds equal bilaterally. No wheezes , rales, or rhonchi. GASTROINTESTINAL: Abdomen soft, non-tender, nondistended. Normal, active bowel sounds MUSCULOSKELETAL: Extremities without clubbing, cyanosis, or edema. NEURO: Alert & Oriented x4 to person, place, time, situation. Moves all ext x4 Medications and IVs Inpatient Medications Acetaminophen (Tylenol) 650 mg Q4H PRN PO TEMP > 100.4; Start 07/18/17 at 18:30 Acetaminophen/ Hydrocodone Bitart ([place] 5-325 Mg) 1 tab ONCE ONCE PO Last administered on 07/20/17at 22:12; Start 07/20/17 at 21:45; Stop 07/20/17 at 21:51 ; Status DC Albuterol/ Ipratropium (Duoneb Neb) 1 ampule Q2HR NEB PRN NEB sob/wheezing; Start 07/20/17 at 09:15 Aspirin (Aspirin) 325 mg ONCE ONCE PO Last administered on 07/18/17at 12:52; Start 07/18/17 at 12:30; Stop 07/18/17 at 12:31; Status DC Bisacodyl (Dulcolax Supp) 10 mg DAILY PRN RECTAL SEVERE CONSITIPATION; Start at 18:30 Budesonide/ Formoterol Fumarate (Symbicort 80-4.5 Mcg Inh) 2 puff BID INH Last administered on 07/21/17at 08:38; Start 07/18/17 at 22:00 Enoxaparin Sodium (Lovenox Inj) 40 mg Q24H SQ Last administered on 07/20/17at 22 :14; Start 07/18/17 at 20:00 Guaifenesin/ Dextromethorphan (Robitussin Dm 200-20 Mg/10 ml Liq) 10 ml ONCE ONCE PO Last administered on 07/20/17at 10:18; Start 07/20/17 at 09:15; Stop 05/27 at 09:39; Status DC Ketorolac Tromethamine (Toradol Inj) 30 mg ONCE ONCE IV PUSH ; Start 07/18/17 at 18:15; Stop 07/18/17 at 18:16; Status DC Lactulose (Lactulose Liq) 30 ml DAILY PRN PO SEVERE CONSITIPATION; Start at 18:30 Magnesium Hydroxide (Milk Of Magnesia Liq) 30 ml Q12H PRN PO Mild constipation ; Start 07/18/17 at 18:30 Naloxone HCl (Narcan Inj) 0.4 mg UNSCH PRN IV PUSH SEE LABEL COMMENTS; Start at 18:30 Nitroglycerin (Nitrostat Sl) 0.4 mg Q5M PRN SL CHEST PAIN; Start 07/18/17 at 20: 30 Sennosides (Senokot) 17.2 mg Q12H PRN PO Moderate constipation; Start 07/18/17 at 18:30 Sodium Chloride (NS Flush) 2 ml BID IV FLUSH Last administered on 07/21/17at 08: 39; Start 07/18/17 at 21:00 A/P Problem List: (1) Atypical chest pain ICD Code: R07.89 - Other chest pain (2) COPD (chronic obstructive pulmonary disease) ICD Code: J44.9 - Chronic obstructive pulmonary disease, unspecified (3) Shortness of breath ICD Code: R06.02 - Shortness of breath Assessment and Plan chest pain - serial troponin negative. -stress test today. COPD exacerbation- improved. - Resumed home Symbicort inhaler - Duo nebulizers every 4 hours as needed for shortness of breath or wheezing - pulmonary follow-up appreciated. Shortness of breath - cardiology cardiac versus pulmonary - CT PA not performed d/t no IV access - VQ scan showed low probability of PE -echo with EF 55%. - Chest x-ray negative for acute disease -stress test today. DVT prophylaxis - Lovenox 40 mg subq q24h Discharge Planning dc home later today -pending stress test. Jenna Hernandez MD Jul 21, 2017 09:11
[2017-07-21] MEDS ORDERED: REGADENOSON INJ 0.4 MG/5 ML SYR ONE (11:37)
--- NOTE | 2017-07-21 12:58 | RADRPT ---
EXAM DATE/TIME: 07/21/2017 11:29 [facility] COMPARISON: MYOCARDIAL PERF PHARM SPECT, GATED W/EF, November 28, 2012, 13:10. INDICATIONS : Substernal chest pain with dyspnea. Angina. DOSE: 25.4 mCi Tc99m Myoview at stress. 8.8 mCi Tc99m Myoview at rest. 0.4 mg Lexiscan STRESS SYMPTOMS: Dyspnea, heart racing and flushed. EJECTION FRACTION: 55% MEDICAL HISTORY : Chronic obstructive pulmonary disease. SURGICAL HISTORY : Tubal ligation. Left elbow. ENCOUNTER: Initial ACUITY: 3 days PAIN SCALE: 5/10 LOCATION: Substernal chest TECHNIQUE: The patient underwent pharmacologic stress with infusion of prescribed dose. Continuous ECG tracing was monitored during stress. Gated SPECT imaging was performed after stress and conventional SPECT i maging was performed at rest. The examination was performed on a SPECT/CT scanner, both attenuation and non-corrected datasets were reviewed. FINDINGS: DISTRIBUTION: The maximum perfused segment at stress is in the posterobasal wall. PERFUSION STUDY: The pattern of perfusion at stress is within normal limits. GATED STUDY: There is intact wall motion and thickening without hypokinetic or dyskinetic segments. CONCLUSION: Normal examination. RISK CATEGORY: Low (<1% Annual Mortality Rate) Pal Davis MD on July 21, 2017 at 12:53 Board Certified Radiologist. This report was verified electronically.
--- NOTE | 2017-07-21 15:15 | HHI.DCPOC ---
Discharge Care Plan Diagnosis: (1) COPD (chronic obstructive pulmonary disease) (2) Atypical chest pain (3) Shortness of breath Goals to Promote Your Health * To prevent worsening of your condition and complications * To maintain your health at the optimal level Directions to Meet Your Goals Take your medications as prescribed Follow your dietary instruction Follow activity as directed Keep your appointments as scheduled Take your immunizations and boosters as scheduled If your symptoms worsen call your PCP, if no PCP go to Urgent Care Center or Emergency Room Smoking is Dangerous to Your Health. Avoid second hand smoke Call the 24-hour hour crisis hotline for domestic abuse at Yamel Molina PA-C Jul 21, 2017 15:15
--- NOTE | 2017-07-26 09:31 | RSPPFT ---
DATE OF PROCEDURE: 07/19/17 COMMENTS: Spirometry with FVC of 2.8, FEV1 of 2.4, FEV1/FVC ratio at 87%. A non-significant response to acutely inhaled bronchodilator noted. IMPRESSION: 1. Mild reduction in flow rates. 2. No evidence of airways obstruction. 3. Possible airways restriction. 4. If clinically warranted, lung volumes may be helpful.
== END 2017-07-21 18:38 | disposition home or self-care (01) ==
LOC: NEPC 09:44 → NEDA 18:28 → NEPHCDU 19:57
PROVIDERS: ADMIT Internal Medicine; ATTEND Internal Medicine
DX: J44.1 Chronic obstructive pulmonary disease with (acute) exacerbation (principal); R07.9 Chest pain, unspecified; E78.5 Hyperlipidemia, unspecified; R94.31 Abnormal electrocardiogram [ECG] [EKG]; F17.210 Nicotine dependence, cigarettes, uncomplicated; Z86.73 Personal history of transient ischemic attack (TIA), and cerebral infarction without residual deficits
CPT/HCPCS: 71046; 78452; 78582; 80048; 80076; 80307; 82550; 83735; 84484; 85025; 85379; 85610; 85730; 93005; 93017; 93306; 94060; 94640; 94664; 96372; 99285; A9502; A9540; A9567; G0378; J1650; J2785

== ENCOUNTER 2017-08-15 09:49 | Emergency (ER) | payer OTHER ==
[~2017-08-15] VITALS: Ht 177.8 cm; Wt 54.5 kg
[2017-08-15 09:51] VITALS: BP 114/81; PULSE 94; RESP 18; TEMP 98.7; O2SAT 100
--- NOTE | 2017-08-15 10:13 | PD ---
HPI Chief Complaint: Exposure to Blood/Body Fluids Time Seen by Provider: 10:01 Travel History International Travel<30 days: No Contact w/Intl Traveler<30days: No Traveled to known affect area: No History of Present Illness HPI 47-year-old female presents to the emergency department requesting a tetanus update after being stuck with a needle to her left thumb about 45 minutes ago. 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 She called her employer and was told to come to the emergency department for tetanus update. States she will follow up with her employer for further testing today. Denies HIV or hepatitis status. Reports been updated on vaccinations. Pain to her thumb is 3/10 and describes it as a burning sensation. Respiratory thumb someone spray at work prior to arrival. Has not taken any medications to alleviate her symptoms. History of COPD. Allergies to morphine sulfate and codeine. Primary care provider is Dr. Flores. Has no other medical complaints. No other modifying factors or associated signs and symptoms. PFSH Past Medical History Hx Anticoagulant Therapy: No Heart Rhythm Problems: No Cancer: No Cardiac Catheterization: No Cardiovascular Problems: Yes (CHEST PAIN) High Cholesterol: Yes Chemotherapy: No Chest Pain: Yes (MAYBE HAD A MILD [place]?/ PT DENIES) COPD: Yes Cerebrovascular Accident: Yes (2011) Diabetes: No Diminished Hearing: No Endocrine: No Genitourinary: No Immune Disorder: No Musculoskeletal: Yes (hx dislocated left knee ) Neurologic: No Reproductive: No Respiratory: Yes (COPD) Menopausal: No : 3 Para: 3 Miscarriage: 0 : 0 Ovarian Cysts: Yes Tubal Ligation: Yes Past Surgical History Coronary Artery Bypass Graft: No Gynecologic Surgery: Yes (TUBAL LIGATION) Hysterectomy: No Social History Alcohol Use: Yes ( OCCASIONAL) Tobacco Use: Yes (1 PPD) Substance Use: No (DENIES) Allergies-Medications (Allergen,Severity, Reaction): Coded Allergies: acetaminophen (Unverified Allergy, Severe, ITCH, 07/18/17) codeine (Unverified Allergy, Severe, ITCH, 07/18/17) morphine (Unverified Allergy, Severe, ITCH, 07/18/17) Reported Meds & Prescriptions Reported Meds & Active Scripts Active Reported Proair Hfa 8.5 GM Inh (Albuterol Sulfate) 90 Mcg/Act Aer 1 Puff INH Q4H PRN 108 mcg/actuation Advair Diskus Inh (Fluticasone-Salmeterol Inh) 100-50 Mcg/Blist Aer 1 Puff INH BID Rinse mouth after use. Review of Systems Except as stated in HPI: all other systems reviewed are Neg Physical Exam Narrative GENERAL: Well-nourished, well-developed female patient, in no acute distress SKIN: Warm and dry. Point, puncture wound to left hand 1st digit; no erythema, no edema, no drainage. HEAD: Atraumatic. Normocephalic. EYES: Pupils equal and round. No scleral icterus. No injection or drainage. ENT: Mucosa pink and moist. Airway patent. NECK: Trachea midline. CARDIOVASCULAR: Regular rate. RESPIRATORY: No accessory muscle use. GASTROINTESTINAL: Flat. MUSCULOSKELETAL: No obvious deformities. No clubbing. No cyanosis. No edema. NEUROLOGICAL: Awake and alert. Oriented 3. No obvious cranial nerve deficits. Motor grossly within normal limits. Normal speech. PSYCHIATRIC: Appropriate mood and affect; insight and judgment normal. Data Data Last Documented VS Vital Signs Date Time Temp Pulse Resp B/P (MAP) Pulse Ox O2 Delivery O2 Flow Rate FiO2 08/15/17 09:51 98.7 94 18 114/81 (92) 100 Room Air Orders Orders Tetanus/Diphtheria Tox Adult (Tetanus/Di (08/15/17 10:15) Ed Discharge Order (08/15/17 10:13) MDM Medical Decision Making Medical Screen Exam Complete: Yes Emergency Medical Condition: Yes Medical Record Reviewed: Yes Differential Diagnosis Tetanus up-date, needlestick injury of finger, medical clearance Narrative Course 47-year-old female with needlestick injury of her left thumb. She works at [employer] and was told to come here for tetanus update. Tetanus updated in the ER. Instructed patient to follow up outpatient for further testing. Instructed patient to follow up with primary care provider. Patient verbalizes understanding and agreement with treatment plan. Patient is medically cleared and stable for discharge. Discussed reasons to return to the emergency department. Patient agrees with treatment plan. The patients vital signs are stable and the patient is stable for outpatient follow-up and treatment. Patient discharged home, stable and in no acute distress. Diagnosis Primary Impression: Needle stick injury of finger Qualified Codes: S61.239A - Puncture wound without foreign body of unspecified finger without damage to nail, initial encounter; W27.3XXA - Contact with needle (sewing), initial encounter Referrals: Primary Care Physician Patient Instructions: Body Substance Exposure (ED), General Instructions, Needle Stick Injuries (ED) Additional Instructions: Follow-up with your employee health/medical Follow-up with primary care provider Med/Other Pt SpecificInfo: No Change to Meds, No Meds Exist/No RX given Disposition: 01 DISCHARGE HOME Condition: Stable Hemalatha Carrasco Aug 15, 2017 10:13
[2017-08-15] MEDS ORDERED: TETANUS/DIPHTHERIA TOXOID ADULT 0.5 ML VIAL IM ONE (10:15)
== END 2017-08-15 11:11 | disposition home or self-care (01) ==
LOC: NEPD 09:49
DX: S61.032A Puncture wound without foreign body of left thumb without damage to nail, initial encounter (principal); W27.3XXA Contact with needle (sewing), initial encounter; Y93.E2 Activity, laundry; Y92.89 Other specified places as the place of occurrence of the external cause; Y99.0 Civilian activity done for income or pay; Z23 Encounter for immunization
CPT/HCPCS: 90471; 90714

== ENCOUNTER 2017-09-13 08:09 | Emergency (ER) | payer SELFPAY ==
[~2017-09-13] VITALS: Ht 177.8 cm; Wt 68.0 kg
[2017-09-13 08:15] VITALS: BP 118/66; PULSE 112; RESP 20; TEMP 98.5; O2SAT 100
[2017-09-13 09:18] VITALS: PULSE 91; RESP 18; O2SAT 100
--- NOTE | 2017-09-13 09:39 | PD ---
HPI Chief Complaint: Cold / Flu Symptoms Time Seen by Provider: 08:54 Travel History International Travel<30 days: No Contact w/Intl Traveler<30days: No Traveled to known affect area: No History of Present Illness HPI 47-year-old female presents to the emergency Department with complaint of fever , cough, body aches, headache 3 days. MAXIMUM TEMPERATURE of 100.0 yesterday. Denies vomiting, diarrhea, abdominal pain. Denies chest pain, shortness of breath. Denies ear pain or sore throat. No sick contacts. Has taken Motrin and Aleve for symptom management. Symptoms are mild in severity. Allergies to codeine and morphine. No primary care provider. No significant past medical history. Has no other medical complaints. No other modifying factors or associated signs and symptoms. PFSH Past Medical History Hx Anticoagulant Therapy: No Heart Rhythm Problems: No Cancer: No Cardiac Catheterization: No Cardiovascular Problems: Yes (CHEST PAIN) High Cholesterol: Yes Chemotherapy: No Chest Pain: Yes (MAYBE HAD A MILD [place]?/ PT DENIES) COPD: Yes Cerebrovascular Accident: Yes (2011) Diabetes: No Diminished Hearing: No Endocrine: No Genitourinary: No Immune Disorder: No Musculoskeletal: Yes (hx dislocated left knee ) Neurologic: No Reproductive: No Respiratory: Yes (COPD) ?: Not Menopausal: No : 3 Para: 3 Miscarriage: 0 : 0 Ovarian Cysts: Yes Tubal Ligation: Yes Past Surgical History Coronary Artery Bypass Graft: No Gynecologic Surgery: Yes (TUBAL LIGATION) Hysterectomy: No Social History Alcohol Use: Yes ( OCCASIONAL) Tobacco Use: Yes (1 PPD) Substance Use: No (DENIES) Allergies-Medications (Allergen,Severity, Reaction): Coded Allergies: acetaminophen (Unverified Allergy, Severe, ITCH, 09/13/17) codeine (Unverified Allergy, Severe, ITCH, 09/13/17) morphine (Unverified Allergy, Severe, ITCH, 09/13/17) Reported Meds & Prescriptions Reported Meds & Active Scripts Active Reported Proair Hfa 8.5 GM Inh (Albuterol Sulfate) 90 Mcg/Act Aer 1 Puff INH Q4H PRN 108 mcg/actuation Advair Diskus Inh (Fluticasone-Salmeterol Inh) 100-50 Mcg/Blist Aer 1 Puff INH BID Rinse mouth after use. Review of Systems Except as stated in HPI: all other systems reviewed are Neg Physical Exam Narrative GENERAL: Well-nourished, well-developed black female patient, in no acute distress; afebrile, nontoxic-appearing SKIN: Warm and dry. No rash. HEAD: Atraumatic. Normocephalic. EYES: Pupils equal and round. No scleral icterus. No injection or drainage. ENT: Mucosa pink and moist. No erythema or exudates. No uvular edema. No uvular , palatal, or tonsillar deviation. Airway patent. EARS: Bilateral pinnae and external canals appear within normal limits. Bilateral tympanic membranes without erythema, dullness or perforation. NECK: Trachea midline. No lymphadenopathy. CARDIOVASCULAR: Regular rate and rhythm. No murmur appreciated. RESPIRATORY: No accessory muscle use. Clear to auscultation. Breath sounds equal bilaterally. No retractions or tachypnea. GASTROINTESTINAL: Abdomen soft, non-tender, nondistended. Hepatic and splenic margins not palpable. Bowel sounds are active 4 quadrants. MUSCULOSKELETAL: No obvious deformities. No clubbing. No cyanosis. No edema. NEUROLOGICAL: Awake and alert. Oriented 3. No obvious cranial nerve deficits. Motor grossly within normal limits. Normal speech. Moves all extremities. 5/5 strength to all extremities. PSYCHIATRIC: Appropriate mood and affect; insight and judgment normal. Data Data Last Documented VS Vital Signs Date Time Temp Pulse Resp B/P (MAP) Pulse Ox O2 Delivery O2 Flow Rate FiO2 09/13/17 09:18 91 18 100 09/13/17 08:15 98.5 118/66 (83) Orders Orders Influenzae A/B Antigen (09/13/17 08:26) Ed Discharge Order (09/13/17 09:39) MDM Medical Decision Making Medical Screen Exam Complete: Yes Emergency Medical Condition: Yes Medical Record Reviewed: Yes Differential Diagnosis Viral illness, influenza, upper respiratory infection, sinusitis Narrative Course 37-year-old female physical exam unremarkable."/Flu symptoms. Patient is afebrile and nontoxic-appearing. Reports MAXIMUM TEMPERATURE of 100.0 yesterday. Denies vomiting. Patient wants to know if she has the flu. Influenza ordered. I offered the patient medication for her body aches or headache and she declined. 0938: Influenza negative. Discussed viral illness and symptomatic management. Work release provided. Instructed patient to follow up with primary care provider. Patient verbalizes understanding and agreement with treatment plan. Patient is medically cleared and stable for discharge. Discussed reasons to return to the emergency department. Patient agrees with treatment plan. The patients vital signs are stable and the patient is stable for outpatient follow- up and treatment. Patient discharged home, stable and in no acute distress. Diagnosis Primary Impression: Viral illness Referrals: [facility] Primary Care Physician Patient Instructions: Cold Symptoms (ED), General Instructions, Safe Use of Cough and Cold Medicines (ED) Departure Forms: Tests/Procedures, Work Release Enter return to work date: Sep 15, 2017 Additional Instructions: Ibuprofen or Tylenol as directed and as needed to reduce fever; may alternate ibuprofen and Tylenol as needed every 3 hours to minimize fever [id number] cold/flu medications as directed and as needed for symptom management Get plenty of sleep/rest Drink plenty of fluids to prevent dehydration; such as Gatorade, Powerade, Pedialyte [place] diet to encourage nutrition such as crackers, fruit, applesauce, toast, soup etc. Use an air humidifier/turn off ceiling fans Follow-up with your primary care provider within 1 day Return immediately to the emergency department with worsening of symptoms Med/Other Pt SpecificInfo: No Change to Meds, No Meds Exist/No RX given Disposition: 01 DISCHARGE HOME Condition: Stable Hemalatha Carrasco Sep 13, 2017 09:39
== END 2017-09-13 10:37 | disposition home or self-care (01) ==
LOC: NEPD 08:09
DX: B34.9 Viral infection, unspecified (principal); E78.00 Pure hypercholesterolemia, unspecified; F17.210 Nicotine dependence, cigarettes, uncomplicated; J44.9 Chronic obstructive pulmonary disease, unspecified; Z86.73 Personal history of transient ischemic attack (TIA), and cerebral infarction without residual deficits; Z88.6 Allergy status to analgesic agent; Z88.5 Allergy status to narcotic agent
CPT/HCPCS: 87804; 99283